=== PATIENT | male | born 1985 | race African-American/Black ===

== ENCOUNTER 2021-07-18 00:58 | Emergency (ER) | payer MEDICAID, OTHER ==
[~2021-07-18] VITALS: Ht 180.3 cm; Wt 77.0 kg
[2021-07-18] MEDS ORDERED: HYDROCODONE/ACETAMINOPHEN 5/325MG TABLET PO ONE (01:15)
[2021-07-18] MEDS ORDERED: IBUP-2029 MT (01:47)
[2021-07-18] MEDS ORDERED: BO1 TP (01:47)
[2021-07-18] MEDS ORDERED: BACITRACIN ZINC OINT UDPKT TOP ONE (02:00)
[2021-07-18] MEDS ORDERED: HYDROCODONE/ACETAMINOPHEN 5/325MG TABLET PO SCH (02:45)
[2021-07-18 02:55] VITALS: BP 140/80
== END 2021-07-18 03:11 | disposition home or self-care (01) ==
LOC: ER 00:58
DX: S90.512A Abrasion, left ankle, initial encounter (principal); M79.662 Pain in left lower leg; X95.9XXA Assault by unspecified firearm discharge, initial encounter; Y93.89 Activity, other specified; Y92.89 Other specified places as the place of occurrence of the external cause
CPT/HCPCS: 73590; 73610; 73630; 99284